=== PATIENT | male | born 1945 | race Caucasian/White ===

== ENCOUNTER 2017-07-16 15:40 | Observation (INO) ==
[2017-07-16] MEDS ORDERED: 0.9 % Sodium Chloride 1,000 ML IVC ONE ×2 (16:12→18:11)
--- NOTE | 2017-07-16 16:12 | Emergency Department Note ---
Disposition Clinical Impression: Lactic acidosis, D-dimer, elevated Dyspnea Qualifiers: Dyspnea type: unspecified Qualified Code(s): R06.00 - Dyspnea, unspecified Disposition: Admitted As Inpatient Condition: Fair Time of Disposition: 19:35 SOB HPI - General Chief Complaint: ED Shortness of Breath/Dyspnea Stated Complaint: Time Seen by Provider: 07/16/17 16:12 Source: patient Limitations: no limitations Nursing Notes Reviewed: Yes Vital Signs Reviewed: Yes - History of Present Illness 72-year-old male history of smoking and hypertension presents with shortness of breath acutely. Patient states that he had shortness of breath approximately one hour prior to ED arrival. He was standing at the time. Surgeon severe shortness of breath and then drove his brought him in for evaluation ED. Patient denies any chest pain or abdominal pain. He does have a recent history of laminectomy and subsequent C. difficile infection postoperatively he was just discharged from [facility] postoperatively a few weeks ago. Patient has a history of a left heart catheter although this was several years ago he has no history of stents, no history of blood clots recent travel or hemoptysis. He does have prolonged recumbency during his stay in the nursing facility Pt Subjective Complaint: shortness of breath - Related Data Home Medications Medication Instructions Recorded Confirmed Gabapentin [Neurontin] 100 mg PO TID 06/20/17 07/16/17 Loratadine [Allergy Relief] 10 mg PO DAILY 06/20/17 07/16/17 Losartan Potassium [Cozaar] 50 mg PO DAILY 06/20/17 07/16/17 Tamsulosin [Flomax] 0.8 mg PO HS 06/22/17 07/16/17 Allergies Allergy/AdvReac Type Severity Reaction Status Date / Time No Known Allergies Allergy Verified 06/22/17 20:44 All systems ED: reviewed and negative except as stated. Review of Systems: As Per HPI Constitutional: Denies: fever, chills Eyes: Denies: eye pain ENT ED: Denies: ear pain Cardiovascular: Reports: as per HPI, dyspnea on exertion. Denies: chest pain, palpitations Respiratory: Reports: as per HPI, dyspnea Gastrointestinal: Denies: abdominal pain, nausea, hematemesis, hematochezia Genitourinary: Denies: urgency, hematuria Musculoskeletal: Denies: back pain Neurological: Denies: headache, weakness Psychiatric: Denies: anxiety Past Medical History - Past Medical History Attestation: Yes The following information was validated with the patient. Source: patient Medical history: Reports: atrial fibrillation, hypertension Surgical history: Reports: other Psychiatric history: Reports: anxiety - Social History Smoking Status: Former smoker Smokeless Tobacco Status: No Alcohol use: Reports: none Drug use: Reports: none Physical Exam Constitutional: NAD, elderly male appears moderately uncomfortable vital signs reviewed and wnl Eyes: PERRLA, sclera anicteric ENT & Mouth: MM dry Neck: normal inspection, neck is supple Resp: CTA bilaterally, no resp distress CV: RRR, no m/g/r no evidence of pedal edema bilaterally GI: normal inspection, soft, no guarding or rigidity Neuro: A&O3, CNII-XII grossly intact, CLAY Skin: on limited exam, poor skin turgor - General Limitations: no limitations General appearance: alert, in no apparent distress Course Course Narrative: 72-year-old male with shortness of breath, given recent recumbency we will get a d-dimer, this could be atypical presentation of ACS however there is no evidence of ST segment elevations or depressions aspirin has been workup is ordered if d-dimer elevated we will get a CTA chest. - Reevaluation(s) Reevaluation #1: CTA was negative for PE, the patient was given aspirin and 2 L of fluid for a lactic acidosis of 3.5 that improved to 3.0 however he has no source of infection, he does not meet any other Sirs criteria besides tachycardia his white count is normal, he is in no acute distress at this time, but given his age and comorbidities would like to bring in for chest pain rule out Time: 19:34 Vital Signs Temperature 97.6 F 07/16/17 15:47 Pulse Rate 103 07/16/17 15:47 Respiratory Rate 18 07/16/17 15:47 Blood Pressure 120/60 07/16/17 15:47 O2 Sat by Pulse Oximetry 98 07/16/17 15:47 Temperature 98.1 F 07/16/17 19:53 Pulse Rate 76 07/16/17 18:38 Respiratory Rate 16 07/16/17 19:53 Blood Pressure 147/84 07/16/17 19:53 O2 Sat by Pulse Oximetry 98 07/16/17 18:38 Oxygen Delivery Oxygen Delivery Room Air Shortness of Breath/Dyspnea - MDM Narrative Medical decision making narrative: Admitted to [facility] for CP rule out Lactic acidosis. - Differential Diagnosis Likely: pulmonary embolism - Medical Records Medical records reviewed: Yes I reviewed the patient's medical records. - Lab Data Lab results reviewed: Yes I reviewed the patient's lab results. Result diagrams: 07/16/17 16:10 07/16/17 16:10 Lab Results 07/16/17 07/16/17 07/16/17 Range/Units 16:10 16:10 16:10 WBC 5.8 (4.3-11.1) K/mcL RBC 4.44 (4.19-5.50) M/mcL Hgb 13.1 (12.9-16.9) g/dL Hct 38.6 (37.5-50.1) % MCV 86.9 (83.0-100.0) fL MCH 29.5 (28.0-33.3) pg MCHC 33.9 (31.6-35.5) g/dL RDW 12.5 (11.5-14.5) % Plt Count 275 (140-400) K/mcL MPV 9.4 (9.4-12.4) fL Immature Gran % 0.2 (0-4) % Seg Neutrophils % 58.5 % Lymphocytes % 34.1 % Monocytes % 6.1 % Eosinophils % 0.9 % Basophils % 0.2 % Neutrophils # 3.4 (1.6-8.9) K/mcL Lymphocytes # 2.0 (0.6-4.6) K/mcL Monocytes # 0.4 (0.0-1.3) K/mcL Eosinophils # 0.1 (0.0-0.6) K/mcL Basophils # 0.0 (0.0-0.2) K/mcL PT (9.4-12.1) Seconds INR APTT (26.0-36.0) Seconds D-Dimer (0-500) ng/mLFEU Sodium 138 (136-145) mEq/L Potassium 4.1 (3.5-4.5) mEq/L Chloride 109 (98-109) mEq/L Carbon Dioxide 19 (19-29) mEq/L BUN 20 (8-26) mg/dL Creatinine 1.03 (0.72-1.25) mg/dL Est GFR ( Amer) > 60 (> 60) Est GFR (Non-Af Amer) > 60 (> 60) BUN/Creatinine Ratio 19 (6-26) Glucose 203 H (70-99) mg/dL Calculated Osmolality 294 (280-300) Lactic Acid 3.5 H (0.5-2.2) mmol/L Calcium 9.3 (8.6-10.8) mg/dL Troponin I (0-0.03) ng/mL B-Natriuretic Peptide (0-100) pg/mL Urine Color (Yellow) Urine Clarity (Clear) Urine pH (5.0-8.0) pH Units Ur Specific [place] (1.010-1.025) Urine Protein (Neg-Trace) mg/dL Urine Glucose (UA) (Normal) mg/dL Urine Ketones (Negative) mg/dL Urine Blood (Negative) Urine Nitrite (Negative) Urine Bilirubin (Negative) Urine Urobilinogen (Normal) mg/dL Ur Leukocyte Esterase (Negative) Urine Microscopic RBC (0-3) per hpf Urine Microscopic WBC (0-3) per hpf Ur Squamous Epith Cells (None-Few) per lpf Amorphous Sediment (Few) Urine Bacteria (None-Few) per hpf Hyaline Casts (None-Few) per lpf Urine Mucus (Few) 07/16/17 07/16/17 07/16/17 Range/Units 16:10 16:10 16:10 WBC (4.3-11.1) K/mcL RBC (4.19-5.50) M/mcL Hgb (12.9-16.9) g/dL Hct (37.5-50.1) % MCV (83.0-100.0) fL MCH (28.0-33.3) pg MCHC (31.6-35.5) g/dL RDW (11.5-14.5) % Plt Count (140-400) K/mcL MPV (9.4-12.4) fL Immature Gran % (0-4) % Seg Neutrophils % % Lymphocytes % % Monocytes % % Eosinophils % % Basophils % % Neutrophils # (1.6-8.9) K/mcL Lymphocytes # (0.6-4.6) K/mcL Monocytes # (0.0-1.3) K/mcL Eosinophils # (0.0-0.6) K/mcL Basophils # (0.0-0.2) K/mcL PT 12.1 (9.4-12.1) Seconds INR 1.1 APTT 31.4 (26.0-36.0) Seconds D-Dimer 5102 H (0-500) ng/mLFEU Sodium (136-145) mEq/L Potassium (3.5-4.5) mEq/L Chloride (98-109) mEq/L Carbon Dioxide (19-29) mEq/L BUN (8-26) mg/dL Creatinine (0.72-1.25) mg/dL Est GFR ( Amer) (> 60) Est GFR (Non-Af Amer) (> 60) BUN/Creatinine Ratio (6-26) Glucose (70-99) mg/dL Calculated Osmolality (280-300) Lactic Acid (0.5-2.2) mmol/L Calcium (8.6-10.8) mg/dL Troponin I 0.00 (0-0.03) ng/mL B-Natriuretic Peptide < 10 (0-100) pg/mL Urine Color (Yellow) Urine Clarity (Clear) Urine pH (5.0-8.0) pH Units Ur Specific [place] (1.010-1.025) Urine Protein (Neg-Trace) mg/dL Urine Glucose (UA) (Normal) mg/dL Urine Ketones (Negative) mg/dL Urine Blood (Negative) Urine Nitrite (Negative) Urine Bilirubin (Negative) Urine Urobilinogen (Normal) mg/dL Ur Leukocyte Esterase (Negative) Urine Microscopic RBC (0-3) per hpf Urine Microscopic WBC (0-3) per hpf Ur Squamous Epith Cells (None-Few) per lpf Amorphous Sediment (Few) Urine Bacteria (None-Few) per hpf Hyaline Casts (None-Few) per lpf Urine Mucus (Few) 07/16/17 07/16/17 Range/Units 16:44 17:58 WBC (4.3-11.1) K/mcL RBC (4.19-5.50) M/mcL Hgb (12.9-16.9) g/dL Hct (37.5-50.1) % MCV (83.0-100.0) fL MCH (28.0-33.3) pg MCHC (31.6-35.5) g/dL RDW (11.5-14.5) % Plt Count (140-400) K/mcL MPV (9.4-12.4) fL Immature Gran % (0-4) % Seg Neutrophils % % Lymphocytes % % Monocytes % % Eosinophils % % Basophils % % Neutrophils # (1.6-8.9) K/mcL Lymphocytes # (0.6-4.6) K/mcL Monocytes # (0.0-1.3) K/mcL Eosinophils # (0.0-0.6) K/mcL Basophils # (0.0-0.2) K/mcL PT (9.4-12.1) Seconds INR APTT (26.0-36.0) Seconds D-Dimer (0-500) ng/mLFEU Sodium (136-145) mEq/L Potassium (3.5-4.5) mEq/L Chloride (98-109) mEq/L Carbon Dioxide (19-29) mEq/L BUN (8-26) mg/dL Creatinine (0.72-1.25) mg/dL Est GFR ( Amer) (> 60) Est GFR (Non-Af Amer) (> 60) BUN/Creatinine Ratio (6-26) Glucose (70-99) mg/dL Calculated Osmolality (280-300) Lactic Acid 3.0 H (0.5-2.2) mmol/L Calcium (8.6-10.8) mg/dL Troponin I (0-0.03) ng/mL B-Natriuretic Peptide (0-100) pg/mL Urine Color Yellow (Yellow) Urine Clarity Cloudy A (Clear) Urine pH 7.5 (5.0-8.0) pH Units Ur Specific [place] > 1.030 H (1.010-1.025) Urine Protein Negative (Neg-Trace) mg/dL Urine Glucose (UA) Normal (Normal) mg/dL Urine Ketones Negative (Negative) mg/dL Urine Blood Negative (Negative) Urine Nitrite Negative (Negative) Urine Bilirubin Negative (Negative) Urine Urobilinogen Normal (Normal) mg/dL Ur Leukocyte Esterase Small H (Negative) Urine Microscopic RBC 0-3 (0-3) per hpf Urine Microscopic WBC 5-15 H (0-3) per hpf Ur Squamous Epith Cells Moderate H (None-Few) per lpf Amorphous Sediment Few (Few) Urine Bacteria None Seen (None-Few) per hpf Hyaline Casts None Seen (None-Few) per lpf Urine Mucus Moderate H (Few) - Radiology Data Radiology results reviewed: Yes I reviewed the patient's radiology results. Chest X-Ray 07/16/17 16:12 IMPRESSION: No acute cardiopulmonary process. D/ / 07/16/2017 17:09:40 Can Razo MD / jc Interpreting Provider: Can Razo MD Chest CTA 07/16/17 16:51 IMPRESSION: No evidence of pulmonary embolism or acute pulmonary abnormality. D/ / Toni Michelle MD / Toni Michelle MD Interpreting Provider: Toni Michelle MD - EKG Data EKG attestation: Yes I reviewed and interpreted this EKG. EKG shows normal: Reports: sinus rhythm (100 bpm UT 167 QRS 94 QTc 382 artifact present appears to be sinus tachycardia left axis no evidence of ST segment elevations or depressions) Interpretation: Reports: no acute changes, normal EKG - Core Measures AMI Core Measures Followed: Yes Attestation Statement - Attestation Attestation: I examined this patient and my medical decision-making was reviewed with the Resident Physician, Dr. Segura. I agree with the documented findings, disposition and treatment plan as described except to the extent set forth below. Patient is a 72-year-old white male who presents emergency Department today with complaints of acute onset of shortness of breath a few hours prior to arrival to the ED. Patient states that he is currently in physical therapy for recent lumbar laminectomy that he underwent at this hospital, and following physical therapy he was resting comfortably and had a sudden onset of shortness of breath. Patient also complained of some preceding lightheadedness and was concerned that he may pass out so he did sit down at the onset of these symptoms. Patient arrives visibly short of breath with increased work of breathing and tachypnea but no hypoxia. Patient denies any lower extremity pain or cramping, no chest pain or pressure or heaviness. No diaphoresis, no abdominal pain or flank pain, no nausea vomiting. Patient has had an unfortunate postoperative course since his surgery. Patient developed postoperative C. difficile colitis as well as urinary retention secondary to an enlarged prostate and had a Hooks catheter placed. Patient states he does have the catheter removed 2 days ago and was prescribed antibiotics but had difficulty tolerating them due to upset his stomach and cause diarrhea. Patient denies any difficulty urinating or dysuria since catheter removal. Patient denies any fevers or chills and states that when he arrived at physical therapy this morning he was feeling quite well. Patient arrives with visible increased work of breathing with mild respiratory distress, tachycardic. Patient with a stable blood pressure and no hypoxia. EKG shows sinus tachycardia with no acute ST or T-wave changes. Patient was continued on teletypesetter monitor and continuous pulse ox IV saline was established labs were drawn and sent and patient had portable chest x-ray obtained. Chest x-ray was unremarkable. Out of concern for possible PE with sudden onset and respiratory distress without any clear etiology patient was sent for scanning. CT is negative for any pulmonary embolus and no other pulmonary abnormality was seen. She did have an elevated lactate which has been improving with IV fluid resuscitation. At no time has he been hypotensive. We have no clear etiology for infection. Patient's troponin was also negative. At this time we do not have a clear answer for the patient's acute onset of dyspnea and will bring him in for further medical evaluation. Discussed the results with patient and who agree with admission and also with the hospitalist who accepted the patient for admission. Patient's vital signs are improved at this time and he is resting more comfortably with no sign of respiratory distress or hypoxia at this time.
--- NOTE | 2017-07-16 16:12 | Emergency Department Note ---
START Narrative - START START: AFTER READING TRIAGE NOTE, NOTED DISCREPANCY IN DOCUMENTATION, AND NOTING THAT I WAS NOT NOTIFIED OF ABNORMAL VS, AND CONCERN FOR SEPSIS NOTED IN TRIAGE NOTE.
[2017-07-16 16:20] LABS: Basophils % 0.2 %; Eosinophils # 0.1 K/mcL (0.0-0.6); Eosinophils % 0.9 %; Hematocrit 38.6 % (37.5-50.1); Hemoglobin 13.1 g/dL (12.9-16.9); Immature Granulocytes % 0.2 % (0-4); Lymphocytes % 34.1 %; Mean Corpuscular HGB Conc 33.9 g/dL (31.6-35.5); Mean Corpuscular Hemoglobin 29.5 pg (28.0-33.3); Mean Corpuscular Volume 86.9 fL (83.0-100.0); Mean Platelet Volume 9.4 fL (9.4-12.4); Monocytes # 0.4 K/mcL (0.0-1.3); Monocytes % 6.1 %; Neutrophils # 3.4 K/mcL (1.6-8.9); Platelet Count 275 K/mcL (140-400); Red Blood Count 4.44 M/mcL (4.19-5.50); Red Cell Distribution Width 12.5 % (11.5-14.5); Segmented Neutrophils % 58.5 %
[2017-07-16 16:25] LABS: INR 1.1; Prothrombin Time 12.1 Seconds (9.4-12.1)
[2017-07-16 16:28] LABS: Activated Partial Thrombo Time 31.4 Seconds (26.0-36.0)
[2017-07-16 16:33] LABS: BUN/Creatinine Ratio 19 (6-26); Blood Urea Nitrogen 20 mg/dL (8-26); Calcium 9.3 mg/dL (8.6-10.8); Carbon Dioxide 19 mEq/L (19-29); Chloride 109 mEq/L (98-109); Glucose 203 mg/dL (70-99); Osmolality,Calculated 294 (280-300); Potassium 4.1 mEq/L (3.5-4.5); Sodium 138 mEq/L (136-145); eGFR For African Americans > 60 (> 60); eGFR For Non-African Americans > 60 (> 60)
[2017-07-16 18:07] LABS: Bilirubin,Urine Negative (Negative); Blood,Urine Negative (Negative); Clarity,Urine Cloudy (Clear); Color,Urine Yellow (Yellow); Glucose,Urine (UA) Normal (Normal); Ketones,Urine Negative (Negative); Leukocyte Esterase,Urine Small (Negative); Nitrite,Urine Negative (Negative); PH,Urine 7.5 pH Units (5.0-8.0); Protein,Urine Negative (Neg-Trace); Specific Gravity,Urine > 1.030 (1.010-1.025); Urobilinogen,Urine Normal (Normal)
[2017-07-16 18:09] LABS: Bacteria,Urine None Seen per hpf (None-Few); Hyaline Casts,Urine None Seen per lpf (None-Few); RBC,Urine 0-3 per hpf (0-3); Squamous Epithelial Cell,Urine Moderate per lpf (None-Few)
[2017-07-16] MEDS ORDERED: Aspirin 325 MG TABLET PO ONE (18:14)
[2017-07-16 18:26] LABS: Amorphous Sediment,Urine Few (Few); Mucus,Urine Moderate (Few)
[2017-07-16] MEDS ORDERED: *HR* Morphine 2 MG/ML SYRINGE IVP PRN (20:29)
[2017-07-16] MEDS ORDERED: Acetaminophen 325 MG TABLET PO PRN (20:29)
[2017-07-16] MEDS ORDERED: Ondansetron 4 MG/2 ML VIAL IVP PRN (20:29)
[2017-07-16] MEDS ORDERED: Naloxone 0.4 MG/ML INJ IVP PRN (20:29)
[2017-07-16] MEDS ORDERED: *HR* HYDROcodone/Acet 5/325 mg TABLET PO PRN (20:29)
[2017-07-16] MEDS: Gabapentin 100 MG CAPSULE PO SCH (21:53)
[2017-07-16] MEDS: Doxycycline 100 MG CAPSULE PO SCH (21:54)
--- NOTE | 2017-07-16 22:20 | Internal Med History&Physical ---
Date of Encounter: 07/16/17 Time of Encounter: 22:17 Assessment and Plan (1) Dyspnea Current visit: Yes Status: Acute Patient reported acute onset shortness of breath. BNP was less than 10. Chest x-ray is unremarkable. EKG with sinus tachycardia and no ST segment changes. D-dimer was elevated, however chest CTA reflect ruled out pulmonary embolism. Suspected angina equivalent. Cycle troponins Echocardiogram done in May 2017 :LVEF 60-65%,Normal left ventricular size and systolic function,.There is evidence of mild diastolic dysfunction of the left ventricle,Normal right ventricular size and function.No significant valvular dysfunction.No pulmonary hypertension. Qualifiers: Dyspnea type: shortness of breath Qualified Code(s): R06.02 - Shortness of breath; R06.00 - Dyspnea, unspecified; R06.01 - Orthopnea (2) Lactic acidosis Current visit: Yes Status: Acute Lactic acidosis of unknown etiology. Patient is not septic. He is improving with IV fluid hydration. Repeat lactate (3) Essential hypertension Current visit: Yes Status: Chronic Controlled on current medications, continue the same. (4) BPH (benign prostatic hyperplasia) Current visit: Yes Status: Chronic Continue home dose of tamsulosin. Patient denies urinary symptoms. Qualifiers: Lower urinary tract symptom presence: unspecified whether lower urinary tract symptoms present Qualified Code(s): N40.0 - Benign prostatic hyperplasia without lower urinary tract symptoms (5) UTI (urinary tract infection) Current visit: Yes Status: Acute Patient reports having an abnormal urine analysis, that is obvious from today's urine analysis. He was started on Bactrim by his primary care physician 3 days ago. However patient reports taking only 2 doses of Bactrim and discontinued because of symptoms of psychosis Start patient on doxycycline Send urine culture. Qualifiers: Urinary tract infection type: acute cystitis Hematuria presence: without hematuria Qualified Code(s): N30.00 - Acute cystitis without hematuria (6) Physical deconditioning Current visit: Yes Status: Chronic PTOT evaluation (7) Atrial fibrillation Current visit: Yes Status: Chronic Patient with paroxysmal atrial fibrillation during his last admission. Patient opted for anticoagulation with aspirin only. His CHADS score is 1 for hypertension. His heart rate is controlled. Continue aspirin only Qualifiers: Atrial fibrillation type: paroxysmal Qualified Code(s): I48.0 - Paroxysmal atrial fibrillation Internal Medicine - H&P: HPI Chief complaint: Shortness of breath Admitted From: Home Plans for Post Hospital Care: Home History of present illness: Mr. Gallegos is a 72 year old male with past medical history of BPH, hypertension, neuropathy. Patient reports being recently discharged from this facility after spine surgery which was complicated by C. difficile colitis and arrhythmia. He reports being in his usual state of health until this afternoon when he developed acute onset shortness of breath which lasted about an hour. He reports associated dizziness and lightheadedness during this process. He denies cough, sore throat, myalgias. He does not have fever or chills. He did not have any chest pain, he did not have nausea or vomiting. He denies abdominal pain. Patient reports having urinary retention after his spine surgery, with indwelling Hooks catheter for 3 weeks. His Hooks catheter was recently removed within the past week. He denies dysuria, he denies urgency, he denies change in urine color. He reports being deconditioned, and is currently undergoing physical therapy and occupational therapy as outpatient. Other review of systems is not contributory. His workup in the ER revealed an unremarkable CBC with chemistry. However his lactate was 3.0. D-dimer was elevated but and 5000. Chest x-ray was unremarkable. Troponin was negative. EKG showed sinus tachycardia without any ST segment changes. His first troponin was negative. Past Med Surg Social Fam HX - Past Medical History Medical history: atrial fibrillation, hypertension Psychiatric history: anxiety - Past Surgical History Surgical History: other - Social History Smoking Status: Former smoker Smokeless Tobacco Status: No Alcohol use: none Drug use: none - Family History Mother Hx Family Endocrine Disorder: Yes (DM) Internal Medicine - H&P: Meds Gabapentin [Neurontin] 100 mg PO TID 06/20/17 [History] Loratadine [Allergy Relief] 10 mg PO DAILY 06/20/17 [History] Losartan Potassium [Cozaar] 50 mg PO DAILY 06/20/17 [History] Tamsulosin [Flomax] 0.8 mg PO HS 06/22/17 [History] 3 Allergy/AdvReac Type Severity Reaction Status Date / Time No Known Allergies Allergy Verified 06/22/17 20:44 All Systems PM: A 10-system review of systems was performed and is negative for pertinent findings except as documented above in the HPI. - Constitutional Constitutional: as per HPI - EENT Eyes: as per HPI Ears: as per HPI Nose, mouth and throat: as per HPI - Cardiovascular Cardiovascular ROS IM: as per HPI - Respiratory Respiratory: as per HPI - Gastrointestinal Gastrointestinal: no abdominal pain, no diarrhea, no hematemesis, no hematochezia, no melena, no nausea, no vomiting - Musculoskeletal Musculoskeletal ROS IM: no numbness, no tingling - Integumentary Integumentary IM: no rash, no unusual bruising - Neurological Neurological ROS: no confusion, no convulsions, no focal weakness, no numbness, no tingling, no tremor(s) - Hematologic/Lymphatic Hematologic/Lymphatic: no easy bruising - Constitutional Vitals: Temp Pulse Resp BP Pulse Ox 98.2 F 75 16 143/60 94 07/16/17 20:00 07/16/17 20:00 07/16/17 20:00 07/16/17 20:00 07/16/17 20:00 General appearance: Present: A&O X 3, pleasant, no acute distress - Head Head exam: Present: atraumatic, normocephalic - Eye Eye exam: Present: PERRL, conjuntiva pink, sclera anicteric Pupils: Present: PERRL - Neck Neck exam general surgery: Present: supple, trachea midline. Absent: lymphadenopathy - Respiratory Respiratory exam: Present: CTAB. Absent: accessory muscle use, rales, rhonchi, wheezes - Cardiovascular Cardiovascular exam: Present: RRR, +S1, +S2. Absent: diastolic murmur, gallop, rubs, systolic murmur - GI/Abdominal GI/Abdominal exam: Present: normal bowel sounds, soft, no peritoneal signs. Absent: distended, tenderness - Extremities Exam Extremities exam: Present: warm, radial pulses palpable and symmetrical. Absent : calf tenderness, cyanotic, pedal edema - Neurological Exam Neurological exam: Present: alert, CN II-XII intact, oriented X3, no focal deficits. Absent: pronater drift, facial droop, speech deficit - Skin Skin exam: Present: dry, intact Internal Med - H&P Results - Labs CBC & Chem 7: 07/16/17 16:10 07/16/17 16:10 Labs: His workup in the ER revealed an unremarkable CBC with chemistry. However his lactate was 3.0. D-dimer was elevated but and 5000. Chest x-ray was unremarkable. Troponin was negative. EKG showed sinus tachycardia without any ST segment changes. His first troponin was negative.
[2017-07-17 07:00] LABS: Basophils % 0.5 %; Eosinophils # 0.1 K/mcL (0.0-0.6); Eosinophils % 2.5 %; Hematocrit 34.6 % (37.5-50.1); Immature Granulocytes % 0.2 % (0-4); Lymphocytes # 1.6 K/mcL (0.6-4.6); Lymphocytes % 34.9 %; Mean Corpuscular HGB Conc 32.9 g/dL (31.6-35.5); Mean Corpuscular Hemoglobin 29.1 pg (28.0-33.3); Mean Corpuscular Volume 88.3 fL (83.0-100.0); Mean Platelet Volume 9.8 fL (9.4-12.4); Monocytes # 0.4 K/mcL (0.0-1.3); Neutrophils # 2.4 K/mcL (1.6-8.9); Platelet Count 244 K/mcL (140-400); Red Blood Count 3.92 M/mcL (4.19-5.50); Red Cell Distribution Width 12.5 % (11.5-14.5); Segmented Neutrophils % 52.9 %
[2017-07-17 07:07] LABS: Hemoglobin 11.4 g/dL (12.9-16.9)
[2017-07-17 07:08] LABS: BUN/Creatinine Ratio 17 (6-26); Blood Urea Nitrogen 13 mg/dL (8-26); Calcium 8.5 mg/dL (8.6-10.8); Carbon Dioxide 20 mEq/L (19-29); Chloride 112 mEq/L (98-109); Glucose 99 mg/dL (70-99); Osmolality,Calculated 290 (280-300); Sodium 140 mEq/L (136-145); eGFR For African Americans > 60 (> 60); eGFR For Non-African Americans > 60 (> 60)
[2017-07-17 07:10] LABS: Chol/HDL Ratio 5.7 (0-4.9)
[2017-07-17] MEDS ORDERED: Regadenoson 0.4 MG/5 ML SYRINGE IVP ONE ×2 (07:41→07:44)
[2017-07-17] MEDS: Loratadine 10 MG TABLET PO SCH (09:00)
[2017-07-17] MEDS: Aspirin Enteric Coated 81 MG Tablet PO SCH (09:00)
[2017-07-17] MEDS: Gabapentin 100 MG CAPSULE PO SCH ×3 (09:01→21:48)
[2017-07-17] MEDS: Doxycycline 100 MG CAPSULE PO SCH ×2 (09:01→21:48)
--- NOTE | 2017-07-17 11:08 | Nuclear Medicine Stress Report ---
Regadenoson Nuclear Stress Name: Can Gallegos Date of Study: 07/17/2017 Date: 1945 Ht: 74.0 in Medical Record#: [id number] Age: 72 Wt: 220.0 lb Gender: Male Order #: [id number] Location: [facility] Room: [facility] Supervising Provider: Rosendo Ceja CNP Reading Physician: Sari Hilton DO Ordering Physician: Mable Cadena CNP Stress Technologist: Alhaji Bolden CRT Ruling Machine Set Up Operator: Raymond Boucher Indications: Chest Pain Impression: There is a mild intensity perfusion defect observed mainly during stress in the basal and mid anterior wall, but also to some trivial extent during rest. Patient's left arm was down during both rest and stress images which can obscure image quality. However, given findings, cannot exclude ischemia in the basal and mid anterior wall. Recommend clinical correlation. Pharmacologic ECG was negative for ischemia at the level of heart rate achieved. Gated EF = >70%. History: Hypertension Hypercholesteremia Stress Test Summary: Stress Test Type: Pharmacologic Regadenoson 0.4mg/5ml given IV Baseline Information: Initial Heart Rate: 82 Blood Pressure: 140/64 Stress Information: Test Terminated Due to (primary): As per protocol Maximum Blood Pressure: 114/60 Maximum Heart Rate: 104 Percent Maximum Heart Rate Achieved: 71 Double Product: [id number] METS Reached: 1 Symptoms: Dizziness Nuclear Summary: SPECT myocardial perfusion imaging using [id number] Sestamibi given intravenously was performed at rest and following cardiac stress testing. The resting images were obtained following initial dose of 11.1 mCi. Following stress an additional dose of 35.6 mCi was given at peak exercise or 30 seconds post regadenoson infusion. Medication Given: Time Medication Dose Units Route Findings: Stress Note * Resting ECG demonstrated normal sinus rhythm with old septal infarct. * Pharmacologic stress ECG is negative for ischemia at level of heart rate achieved. * No arrhythmias were noted during stress. * Patient had no chest pain during stress. Hemodynamic responses * Normal hemodynamic responses to pharmacologic stress. Study Quality * Study quality performance is average. Image quality is limited - patient with left arm down during rest and stress images. Gated EF > 70% * Gated EF > 70%. Left Ventricle * The left ventricle is not dilated. TID * No evidence of transient ischemic dilatation. Lung Uptake * There is no evidence of increase lung uptake. NORMALS * Normal wall motion. PERFUSION * PERFUSION * There is a mild intensity perfusion defect observed mainly during stress, but also to some extent during rest. Patient's left arm was down during both rest and stress images which can obscure image quality. However, given findings, cannot exclude ischemia in the basal and mid anterior wall. * Other segments demonstrate normal rest and stress perfusion uptake. Updated by Sari Hilton on 07/17/2017 10:58:09 AM electronically signed on 07/17/2017 11:03:08 AM with status of Final
--- NOTE | 2017-07-17 18:33 | Internal Med Progress Note ---
Date of Encounter: 07/17/17 Time of Encounter: 09:35 - Assessment and plan (1) DVT prophylaxis Current Visit: No Status: Acute Assessment and plan: Patient is ambulatory. (2) S/P laminectomy Current Visit: No Status: Acute (3) Lactic acidosis Current Visit: Yes Status: Resolved Assessment and plan: Lactic acid has returned to within normal limits. Resolved with fluid hydration. (4) Dyspnea Current Visit: Yes Status: Acute Assessment and plan: Patient denies dyspnea since admission. States he began having shortness of breath and chest pressure while at the car wash after physical therapy. Patient is physically deconditioned due to surgery. He is getting physical therapy outpatient. Dyspnea could be multifactorial, including anxiety, physical deconditioning, and general fatigue. All testing has been negative to this point. We will continue to monitor. Qualifiers: Dyspnea type: shortness of breath Qualified Code(s): R06.02 - Shortness of breath; R06.00 - Dyspnea, unspecified; R06.01 - Orthopnea (5) D-dimer, elevated Current Visit: Yes Status: Acute Assessment and plan: CTA negative for PE. (6) UTI (urinary tract infection) Current Visit: Yes Status: Acute Assessment and plan: Urine cloudy, small amount of leukocyte esterase, 5-15 white cells and no bacteria. Patient was being treated with by his primary care provider. He believes that it was causing him anxiety and states that he felt like he needed to run everywhere. Antibiotic has been changed to doxycycline. Culture is still pending. Qualifiers: Urinary tract infection type: acute cystitis Hematuria presence: without hematuria Qualified Code(s): N30.00 - Acute cystitis without hematuria (7) Physical deconditioning Current Visit: Yes Status: Chronic Assessment and plan: Patient with recent laminectomy in May. He is steadily improving, he has been getting outpatient physical therapy. We will continue physical therapy inpatient. - Time Spent With Patient less than 15 minutes - Subjective Interval history: Patient was seen and assessed at 09 30 5 AM. Patient was standing at the site of his bed, states that he has greatly improved. Patient denies any chest pain or dyspnea. Patient reports that he feels Bactrim has been giving him anxiety. He does have a history of depression. He is taking Bactrim for urinary tract infection which has been switched to doxycycline. I believe patient episode prior to arrival with dyspnea was related to anxiety. Patient has had surgery and multiple hospital admissions since May. We will continue to monitor the patient. Most likely will discharge in the morning if his labs remained stable. - Constitutional Vitals: Temp Pulse Resp BP Pulse Ox 98.1 F 67 18 133/71 96 07/17/17 15:30 07/17/17 15:30 07/17/17 15:30 07/17/17 15:30 07/17/17 15:30 General appearance: Present: A&O X 3, pleasant, no acute distress, answers questions appropriately - Head Head exam: Present: atraumatic, normal inspection, normocephalic - Eye Eye exam: Present: normal appearance, conjuntiva pink, sclera anicteric - Neck Neck exam general surgery: Present: supple, trachea midline. Absent: lymphadenopathy - Respiratory Respiratory exam: Present: CTAB. Absent: accessory muscle use, rales, rhonchi, wheezes - Cardiovascular Cardiovascular exam: Present: RRR, +S1, +S2. Absent: diastolic murmur, gallop, rubs, systolic murmur - GI/Abdominal GI/Abdominal exam: Present: normal bowel sounds, soft, no peritoneal signs. Absent: distended, hepatomegaly, tenderness - Extremities Exam Extremities exam: Present: normal capillary refill, normal inspection, warm, radial pulses palpable and symmetrical. Absent: calf tenderness, cyanotic, pedal edema, tenderness - Neurological Exam Neurological exam: Present: alert, oriented X3, no focal deficits. Absent: altered, facial droop, speech deficit - Skin Skin exam: Present: dry, intact, normal color, warm. Absent: rash Internal Medicine: Result - Labs CBC & Chem 7: 07/17/17 06:16 07/17/17 06:16 Labs: Short CBC 07/17/17 Range/Units 06:16 WBC 4.4 (4.3-11.1) K/mcL Hgb 11.4 L D (12.9-16.9) g/dL Hct 34.6 L (37.5-50.1) % Plt Count 244 (140-400) K/mcL Neutrophils # 2.4 (1.6-8.9) K/mcL BMP 07/17/17 06:16 Sodium 140 Potassium 4.0 Chloride 112 H Carbon Dioxide 20 BUN 13 Creatinine 0.77 Glucose 99 Calcium 8.5 L Cardiac Enzymes 07/16/17 07/17/17 Range/Units 21:48 06:16 Troponin I 0.02 0.02 (0-0.03) ng/mL - ABG Interpretation ABG results: PT/INR, D-dimer PT 12.1 Seconds (9.4-12.1) 07/16/17 16:10 D-Dimer 5102 ng/mLFEU (0-500) H 07/16/17 16:10 Consult Discharge Plan - Plan Referrals: Brittany Looney MD [Primary Care Provider] -
--- NOTE | 2017-07-17 19:14 | Electrocardiograph Report ---
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
[2017-07-18 05:26] LABS: Basophils % 0.2 %; Eosinophils # 0.1 K/mcL (0.0-0.6); Eosinophils % 2.8 %; Hematocrit 35.2 % (37.5-50.1); Hemoglobin 11.8 g/dL (12.9-16.9); Immature Granulocytes % 0.2 % (0-4); Lymphocytes # 1.5 K/mcL (0.6-4.6); Lymphocytes % 31.8 %; Mean Corpuscular HGB Conc 33.5 g/dL (31.6-35.5); Mean Corpuscular Hemoglobin 29.9 pg (28.0-33.3); Mean Corpuscular Volume 89.1 fL (83.0-100.0); Mean Platelet Volume 9.8 fL (9.4-12.4); Monocytes # 0.4 K/mcL (0.0-1.3); Monocytes % 8.9 %; Neutrophils # 2.6 K/mcL (1.6-8.9); Platelet Count 239 K/mcL (140-400); Red Blood Count 3.95 M/mcL (4.19-5.50); Red Cell Distribution Width 12.6 % (11.5-14.5); Segmented Neutrophils % 56.1 %
[2017-07-18 05:38] LABS: BUN/Creatinine Ratio 13 (6-26); Blood Urea Nitrogen 10 mg/dL (8-26); Calcium 8.7 mg/dL (8.6-10.8); Carbon Dioxide 22 mEq/L (19-29); Chloride 111 mEq/L (98-109); Glucose 98 mg/dL (70-99); Osmolality,Calculated 289 (280-300); Sodium 140 mEq/L (136-145); eGFR For African Americans > 60 (> 60); eGFR For Non-African Americans > 60 (> 60)
[2017-07-18] MEDS: Aspirin Enteric Coated 81 MG Tablet PO SCH (08:00)
[2017-07-18] MEDS: Loratadine 10 MG TABLET PO SCH (08:00)
[2017-07-18] MEDS: Doxycycline 100 MG CAPSULE PO SCH (08:00)
[2017-07-18] MEDS: Gabapentin 100 MG CAPSULE PO SCH ×3 (08:01→20:06)
--- NOTE | 2017-07-18 15:09 | Cardiology Consult Note ---
<Reid Lee - Last Filed: 07/18/17 15:25> Date of Encounter: 07/18/17 Time of Encounter: 15:04 Assessment and Plan (1) Abnormal stress test Current Visit: Yes Status: Acute Presents with SOB and dizziness. Denies chest pain to me. Troponin negative. He is normotensive. Telemetry review showed NSR. Stress test ordered by primary team. Stress test showed a mild intensity perfusion defect observed mainly during stress in the basal and mid anterior wall, but also to some trivial extent during rest. Patient's left arm was down during both rest and stress images which can obscure image quality. However, given findings, cannot exclude ischemia in the basal and mid anterior wall. Recommend clinical correlation. Pharmacologic ECG was negative for ischemia at the level of heart rate achieved. Gated EF = > 70%. Stress test reviewed with patient and . LHC is recommended for further evaluation. R/B/A of LHC discussed. Patient declines LHC at this time and prefers only medical management. He does not wish to proceed with any invasive procedures. Dr. Blackmon to discuss further. Recommend asa, statin, and bb. Agressive risk factor modification. (2) Atrial fibrillation Current Visit: No Status: Resolved H/o post operative afib that resolved in after surgery when given esmolol. Telemetry review shows no evidence of afib. SR-ST with avg HR 80. Anticoagulation was not recommended d/t short duration.Continue beta-nga. Qualifiers: Atrial fibrillation type: unspecified Qualified Code(s): I48.91 - Unspecified atrial fibrillation Discussion w patient/family: The assessment and plan as outlined above was discussed with the patient and/or family members who expressed understanding and agreement. All questions were answered. Thank you for involving us in the care of your patient. Please call with any questions. History of Present Illness Consult date: 07/18/17 Requesting physician: Mable Cadena Consult reason: abnormal stress test Chief complaint: Chest pain History of present illness: Mr. Gallegos is a 72 year old male with a history of HTN, HLD, recent lumbar spine surgery with post-operative atrial fibrillation, recent MRSA of back wound who presents with the c/o dizziness and SOB while watching his car be washed at the car wash. He walked into the viewing area and sat down. He continued to feel unwell. He denies chest pain or palpitations. He presented to the ER. Initial evaluation showed that he was normotensive. EKG revealed ST HR [address] changes. Troponin negative. He reports decreased mobility due to lumbar spine surgery in May. He developed post-operative atrial fibrillation in the operating room. No recurrent problem since that time that he knows of. He did have an echocardiogram that showed normal LV function during that hospital stay. Cardiology consulted for abnormal stress test. Past Med Surg Social Fam HX - Past Medical History Medical history: atrial fibrillation, hypertension Psychiatric history: anxiety - Past Surgical History Surgical History: other - Social History Smoking Status: Former smoker Smokeless Tobacco Status: No Alcohol use: none Drug use: none - Family History Mother Hx Family Endocrine Disorder: Yes (DM) Medications and Allergies Gabapentin [Neurontin] 100 mg PO TID 06/20/17 [History] Loratadine [Allergy Relief] 10 mg PO DAILY 06/20/17 [History] Losartan Potassium [Cozaar] 50 mg PO DAILY 06/20/17 [History] Tamsulosin [Flomax] 0.8 mg PO HS 06/22/17 [History] 3 Allergy/AdvReac Type Severity Reaction Status Date / Time No Known Allergies Allergy Verified 06/22/17 20:44 All Systems Review: A 10-system review of systems was performed and is negative for pertinent findings except as documented above in the HPI. Physical Examination Vital Signs, Last 4 Hours Temp Pulse Resp BP Pulse Ox 07/18/17 14:08 97.8 F 82 16 124/70 96 07/18/17 11:32 97.8 F 74 16 133/70 95 General: Conversant, No Apparent Distress, Other (Frail elderly male) HEENT: Atraumatic, Normocephaly, Mucus Membranes Moist Neck: No JVD, Normal carotid pulses Cardiac: Reg Rate and Rhythm, Normal S1 and S2, No Murmur Lungs: Normal Breath Sounds, No Wheeze, Rales, Rhonchi Neuro: Alert and responsive, No focal deficits noted Abdomen: Soft, Non-Tender Skin: No rashes noted on visualized skin, Other (lumbar spine healed incision) Musculoskeletal: No Chest Wall Tenderness Extremities: No Clubbing, No Cyanosis, No Edema, Normal Pulses Results 07/18/17 04:56 07/18/17 04:56 Lab Results 07/18/17 07/18/17 04:56 04:56 WBC 4.6 Hgb 11.8 L Hct 35.2 L Plt Count 239 Sodium 140 Potassium 4.0 Chloride 111 H Carbon Dioxide 22 BUN 10 Creatinine 0.80 Glucose 98 Calcium 8.7 - Imaging and Cardiology Stress Test: report reviewed Echo: report reviewed - EKG Interpretation EKG results cardiology: personally reviewed Consult Discharge Plan - Plan Referrals: Brittany Looney MD [Primary Care Provider] - 08/01/17 1:00 pm <Joaquín Blackmon - Last Filed: 07/18/17 19:20> Date of Encounter: 07/18/17 Assessment and Plan Discussion w patient/family: The assessment and plan as outlined above was discussed with the patient and/or family members who expressed understanding and agreement. All questions were answered. Thank you for involving us in the care of your patient. Please call with any questions. History of Present Illness History of present illness: Mr. Gallegos is a 72 year old male All Systems Review: A 10-system review of systems was performed and is negative for pertinent findings except as documented above in the HPI. Results 07/18/17 04:56 07/18/17 04:56 Lab Results 07/18/17 07/18/17 04:56 04:56 WBC 4.6 Hgb 11.8 L Hct 35.2 L Plt Count 239 Sodium 140 Potassium 4.0 Chloride 111 H Carbon Dioxide 22 BUN 10 Creatinine 0.80 Glucose 98 Calcium 8.7 - Attending Attestation PT seen and examined independently, chart reviewed, essentially agree with findings as documented, my evaluation as follows: CC: Dizziness HPI: PT reports was watching car at [employer], developed dizziness, mild shortness of breath while standing. He walked into administrative assistant receptionist, sat down and shortness of breath resolved, but still felt dizzy. Symptoms persisted for another ten minutes, pt called squad, transported to ER. He reports symptoms had resolved at that point. He has not had any reoccurence of symptoms since admission. He notes he felt very similar to when he had A fib post op back surgery. He denies other similar episodes. Activity is limited by recent back surgery, but has been doing steps and ellipitcal at rehab without symptoms. PE: agree with findings as documented, add has mild pectus excavatum. IMP/Plan; 1. Dizziness: has resolved, have not idenified a direct etiology, although symptoms are suggestive of recurrent A fib with RVR, will add low dose coreg, decrease Losartin, monitor overnight, home in AM is asymptomatic, follow with 48 hour holter as outpatient. 2. Abnormal stress test: findings suggestive of reversible ischemia, long conversation with pt and , recommend [facility] to define anatomy, pt very concerned with recent complications of back surgery, does not want to run the risk of complications unless becomes more symptomatic. He is willing to follow up as outpatient, carry ntg and add low dose Coreg. Pt and understand and accept small but real risk of myocardial infarction, arrhythmia and with medical management only, and agree to be vigilent for any new symptoms. 3. Hypertension: well controlled on current meds, will decrease Losartin to 25 mg daily to avoid hypotension with addition of Coreg. 4. Paroxysmal A fib, maintaining NSR on tele, will follow as outpatient with prolonged monitoring. No indication for systemic anticoagulation at present.
--- NOTE | 2017-07-18 18:25 | Internal Med Progress Note ---
Date of Encounter: 07/18/17 Time of Encounter: 13:55 - Assessment and plan (1) S/P laminectomy Current Visit: No Status: Acute Assessment and plan: Patient had surgery in May. He is doing physical therapy outpatient and will continue to do so after discharge. (2) Lactic acidosis Current Visit: Yes Status: Resolved (3) Dyspnea Current Visit: Yes Status: Acute Assessment and plan: Patient denies dyspnea since admission. We will continue to monitor. Lungs are clear. Dyspnea was most likely due to chest pain that he had, patient had abnormal stress test today. Qualifiers: Dyspnea type: shortness of breath Qualified Code(s): R06.02 - Shortness of breath; R06.00 - Dyspnea, unspecified; R06.01 - Orthopnea (4) D-dimer, elevated Current Visit: Yes Status: Acute Assessment and plan: CTA negative for PE. (5) UTI (urinary tract infection) Current Visit: Yes Status: Acute Assessment and plan: Urine culture was negative. Will stop doxycycline. Qualifiers: Urinary tract infection type: acute cystitis Hematuria presence: without hematuria Qualified Code(s): N30.00 - Acute cystitis without hematuria (6) Physical deconditioning Current Visit: Yes Status: Chronic Assessment and plan: Patient with recent laminectomy in May. He is steadily improving, he has been getting outpatient physical therapy. We will continue physical therapy inpatient. (7) DVT prophylaxis Current Visit: No Status: Acute Assessment and plan: Patient is ambulatory. (8) Abnormal stress test Current Visit: Yes Status: Acute Assessment and plan: She had an abnormal stress test today. It showed mild intensity perfusion defect observed mainly during stress in the basal and mid anterior wall. Patient's arm was down during both resting and stress images which can obscure image quality. However, given findings, cannot exclude ischemia in the basal and mid anterior wall. Pharmacologic ECG was negative for ischemia at the level of the heart rate achieved. There is a gaited EF of greater than 70%. Cardiology was consulted. The patient was seen today in [facility] was recommended. Patient declines left heart catheter this time and prefers only medical management. Patient was to see Dr. Blackmon today. Patient is already on aspirin, and a statin. I have started a beta nga, metoprolol 12.5 mg by mouth twice a day. - Time Spent With Patient less than 15 minutes - Subjective Interval history: Patient was seen and assessed at 1355. is at bedside. Patient appears well and denies chest pain. I discussed the results of the stress test the fact that I had consulted cardiology. Patient did not appear to happy as they thought they were going home today. Patient is agreeable to staying for cardiology consult. We will most likely discharge in the morning if new medications are started. - Constitutional Vitals: Temp Pulse Resp BP Pulse Ox 97.8 F 82 16 124/70 96 07/18/17 14:08 07/18/17 14:08 07/18/17 14:08 07/18/17 14:08 07/18/17 14:08 General appearance: Present: cooperative, A&O X 3, pleasant, no acute distress, answers questions appropriately - Head Head exam: Present: atraumatic, normal inspection, normocephalic - Eye Eye exam: Present: normal appearance, conjuntiva pink, sclera anicteric - Neck Neck exam general surgery: Present: supple, trachea midline. Absent: lymphadenopathy - Respiratory Respiratory exam: Present: CTAB. Absent: accessory muscle use, rales, rhonchi, wheezes - Cardiovascular Cardiovascular exam: Present: RRR, +S1, +S2. Absent: diastolic murmur, gallop, rubs, systolic murmur - GI/Abdominal GI/Abdominal exam: Present: normal bowel sounds, soft, no peritoneal signs. Absent: distended, tenderness - Extremities Exam Extremities exam: Present: normal capillary refill, warm, radial pulses palpable and symmetrical. Absent: calf tenderness, cyanotic, pedal edema - Neurological Exam Neurological exam: Present: alert, oriented X3, no focal deficits, pronater drift. Absent: facial droop, speech deficit - Skin Skin exam: Present: dry, intact, normal color, warm. Absent: rash Internal Medicine: Result - Labs CBC & Chem 7: 07/18/17 04:56 07/18/17 04:56 Labs: Short CBC 07/18/17 Range/Units 04:56 WBC 4.6 (4.3-11.1) K/mcL Hgb 11.8 L (12.9-16.9) g/dL Hct 35.2 L (37.5-50.1) % Plt Count 239 (140-400) K/mcL Neutrophils # 2.6 (1.6-8.9) K/mcL BMP 07/18/17 04:56 Sodium 140 Potassium 4.0 Chloride 111 H Carbon Dioxide 22 BUN 10 Creatinine 0.80 Glucose 98 Calcium 8.7 - ABG Interpretation ABG results: PT/INR, D-dimer PT 12.1 Seconds (9.4-12.1) 07/16/17 16:10 D-Dimer 5102 ng/mLFEU (0-500) H 07/16/17 16:10 Consult Discharge Plan - Plan Referrals: Brittany Looney MD [Primary Care Provider] - 08/01/17 1:00 pm
[2017-07-19] MEDS: Gabapentin 100 MG CAPSULE PO SCH (09:38)
[2017-07-19] MEDS: Loratadine 10 MG TABLET PO SCH (09:38)
[2017-07-19] MEDS: Aspirin Enteric Coated 81 MG Tablet PO SCH (09:38)
--- NOTE | 2017-07-19 10:30 | Discharge Summary ---
Date of Encounter: 07/19/17 Time of Encounter: 10:00 - Discharge Diagnosis (1) S/P laminectomy Priority: Secondary Status: Acute Comments: Continue outpatient PT. (2) Lactic acidosis Priority: Secondary Status: Resolved (3) Dyspnea Priority: Secondary Status: Acute Comments: Pt denies dyspnea since prior to arrival. Pt had abnormal stress test and has declined [facility]. Will treat with BB, ASA, and Statin. Lungs are clear througout. Qualifiers: Dyspnea type: shortness of breath Qualified Code(s): R06.02 - Shortness of breath; R06.00 - Dyspnea, unspecified; R06.01 - Orthopnea (4) D-dimer, elevated Priority: Secondary Status: Resolved Comments: CTA negative for PE. (5) UTI (urinary tract infection) Priority: Secondary Status: Ruled-out Comments: Urine Culture negative, no growth. Antibiotics have been stopped. Qualifiers: Urinary tract infection type: acute cystitis Hematuria presence: without hematuria Qualified Code(s): N30.00 - Acute cystitis without hematuria (6) Physical deconditioning Priority: Secondary Status: Chronic Comments: Continue PT at home. (7) DVT prophylaxis Priority: Secondary Status: Acute Comments: Pt has been ambulatory. (8) Abnormal stress test Priority: Secondary Status: Acute Comments: Pt had an abnormal stress test. It showed mild intensity perfusion defect observed mainly during stress in the basal and mid anterior wall. Patient's arm was down during both resting and stress images which can obscure image quality. However, given findings, cannot exclude ischemia in the basal and mid anterior wall. Pharmacologic ECG was negative for ischemia at the level of the heart rate achieved. There is a gated EF of greater than 70%. Cardiology recommended [facility], patient declines and prefers only medical management. He will be discharged on ASA, statin, and BB. - Discharge Medications Prescriptions: Aspirin Enteric Coated [Aspirin EC] 81 mg PO DAILY #30 tablet. Atorvastatin [Lipitor] 40 mg PO HS #30 tablet Losartan [Cozaar] 50 mg PO DAILY #15 tablet Metoprolol [Lopressor] 12.5 mg PO BID #30 tablet Home Medications: Gabapentin [Neurontin] 100 mg PO TID 06/20/17 [History] Loratadine [Allergy Relief] 10 mg PO DAILY 06/20/17 [History] Tamsulosin [Flomax] 0.8 mg PO HS 06/22/17 [History] Aspirin Enteric Coated [Aspirin EC] 81 mg PO DAILY #30 tablet. 07/19/17 [Rx] Atorvastatin [Lipitor] 40 mg PO HS #30 tablet 07/19/17 [Rx] Losartan [Cozaar] 50 mg PO DAILY #15 tablet 07/19/17 [Rx] Metoprolol [Lopressor] 12.5 mg PO BID #30 tablet 07/19/17 [Rx] Allergies/Adverse Reactions: 3 Allergy/AdvReac Type Severity Reaction Status Date / Time No Known Allergies Allergy Verified 06/22/17 20:44 Procedures/tests Complete & Pending: Procedures Performed prior 72 hours Category Date Time Status NM ree perf SPECT multi [NM] Routine Exams 07/16/17 20:32 Taken SP pharm nuclear stress Routine Y 07/17/17 07:10 Completed Date of admission: 07/16/17 19:18 Primary care physician: Brittany Looney MD Consults: 07/16/17 22:23 Consult to Occupational Therapy [CONS] Routine Comment: Evaluate, develop and implement POC Reason for Consult: Deconditioning Consult to Physical Therapy [CONS] Routine Comment: Evaluate, develop and implement POC Reason for Consult: Deconditioning 07/17/17 11:28 Consult to Ingredient Specialist [CONS] Routine Reason for SW Consult: outpatient therapy 07/18/17 13:23 Consult to Cardiology [CONS] Routine Comment: Consulting Provider: Cardiology Kaylin Reason for Consult: abnormal stress, Patient's left arm was down during both rest and stress images which can obscure image quality. However, given findings, cannot exclude ischemia in the basal and mid anterior wall. Time Notified: 13:25 Call Completed: Yes Discharging clinician: Laurita Pena Anticipated date of discharge: 07/19/17 - Patient Status Disposition: Home, Self-Care Condition: Good Functional capacity at discharge: independent ambulation Overall status at discharge: patient is progressing back to baseline - Discharge Instructions Follow Up With: Brittany Looney MD [Primary Care Provider] - 08/01/17 1:00 pm Additional Instructions: Follow up with your primary care physician in the next 7-10 days for recheck. Follow-up with cardiology as scheduled. Take new medications as directed. Resume your other home medications. Resume activities as tolerated. Continue physical therapy. Return to the emergency department for any new problems or concerns, or if symptoms return or worsen. - Diet and Activity Activity: increase activity as tolerated Diet: advance to your usual diet Hospital course: Mr. Gallegos is a 72 year old male with past medical history of BPH, hypertension, neuropathy, recent lumbar laminectomy receiving outpatient physical therapy. Patient reports recent hospitalizations here after surgery, complicated by C. difficile colitis and arrhythmia. Patient states that after physical therapy the day of admission, he developed acute shortness of breath while getting out of the car at the car wash. It lasted about an hour. He reported associated dizziness and lightheadedness. He denied chest pain, nausea or vomiting. No abdominal pain, no cough, sore throat, myalgias. Patient had an indwelling Hooks catheter for 3 weeks after surgery and was treated prophylactically for UTI. He was recently removed within the last week prior to admission. He had no urinary symptoms. Patient reports feeling weak and deconditioned and is currently undergoing outpatient physical therapy. Patient continued physical therapy while he was here and was able to stand at the bedside and move about the room with minimal assistance. Urine on admission was cloudy with a small amount of leukocyte esterase, 5-15 white cells , no bacteria, moderate mucus. He continued antibiotic therapy until urine culture returned with no growth. The antibiotic was stopped. On arrival to the emergency department patient had an elevated d-dimer, that was followed up with a chest CTA that was negative for PE. Patient has no leg swelling, no pain , bilateral Homans are negative. He has adequate pedal pulses and no edema. Shortness of breath was concerning for cardiac symptoms, he had a positive stress test with a perfusion defect, ischemia to the basal mid anterior wall could not be excluded. The ECG was negative for ischemia, and the gated EF is > 70%. Cardiology recommended an C. Patient declined states he wants to do medical management. Pt will be sent home with BB, ASA, and Statin rx. He denies chest pain or dyspnea, no headache, urinary symptoms, no abdominal pain, or new pain above baseline. Physical exam is unremarkable. Pt's labs and vital signs are WNL and pt is ready for discharge. Education has been completed and I encouraged pt to follow up with PCP in the next 7-10days. - Time Spent with Patient Total time spent providing and/or coordinating discharge services: Less than 30 minutes - Constitutional Vitals: Temp Pulse Resp BP Pulse Ox 97.6 F 78 16 106/65 92 07/19/17 07:03 07/19/17 07:03 07/19/17 07:03 07/19/17 07:03 07/19/17 07:03 General appearance: Present: cooperative, A&O X 3, pleasant, no acute distress, answers questions appropriately - Head Head exam: Present: atraumatic, normal inspection, normocephalic - Eye Eye exam: Present: conjuntiva pink, sclera anicteric - Neck Neck exam general surgery: Present: normal inspection, tenderness, supple, trachea midline - Respiratory Respiratory exam: Present: CTAB. Absent: accessory muscle use, chest wall tenderness, rales, rhonchi, wheezes - Cardiovascular Cardiovascular exam: Present: RRR, +S1, +S2. Absent: diastolic murmur, gallop, rubs, systolic murmur - GI/Abdominal GI/Abdominal exam: Present: normal bowel sounds, soft, no peritoneal signs. Absent: distended, tenderness - Extremities Exam Extremities exam: Present: normal capillary refill, warm, radial pulses palpable and symmetrical. Absent: calf tenderness, cyanotic, pedal edema - Neurological Exam Neurological exam: Present: alert, oriented X3. Absent: facial droop, speech deficit - Skin Skin exam: Present: dry, intact, normal color, warm. Absent: rash
--- NOTE | 2017-07-19 11:59 | Cardiology Progress Note ---
Date of Encounter: 07/19/17 Time of Encounter: 11:54 Assessment and Plan (1) Abnormal stress test Current Visit: Yes Status: Acute Presents with SOB and dizziness. Denies chest pain to me. Troponin negative. He is normotensive. Telemetry review showed NSR. Stress test ordered by primary team. Stress test showed a mild intensity perfusion defect observed mainly during stress in the basal and mid anterior wall, but also to some trivial extent during rest. Patient's left arm was down during both rest and stress images which can obscure image quality. However, given findings, cannot exclude ischemia in the basal and mid anterior wall. Recommend clinical correlation. Pharmacologic ECG was negative for ischemia at the level of heart rate achieved. Gated EF = > 70%. Stress test reviewed with patient and . LHC is recommended for further evaluation. R/B/A of LHC discussed. Patient declined [facility] and prefers only medical management. He does not wish to proceed with any invasive procedures. risk of UT, arrythmia or was reviewed with patient and by Dr. Blackmon. Patient voiced understanding. He reports he is feeling well and ready to go home. Recommend asa, statin, and bb. Patient agrees. Out-pt f/u with [facility] will be coordinated by the office. Please call with questions, (2) Atrial fibrillation Current Visit: No Status: Resolved H/o post operative afib that resolved in after surgery when given esmolol. Telemetry review shows no evidence of afib. SR-ST with avg HR 80. Anticoagulation was not recommended d/t short duration. Continue beta-nga. Qualifiers: Atrial fibrillation type: unspecified Qualified Code(s): I48.91 - Unspecified atrial fibrillation Discussion w patient/family: The assessment and plan as outlined above was discussed with the patient and/or family members who expressed understanding and agreement. All questions were answered. Thank you for involving us in the care of your patient. Please call with any questions. Subjective Principal diagnosis: Abnormal stress, dizziness Interval history: Mr. Gallegos denies recurrent dizziness or lightheadedness. Objective General: Conversant, No Apparent Distress HEENT: Atraumatic, Normocephaly, Mucus Membranes Moist Neck: No JVD, Normal carotid pulses Cardiac: Reg Rate and Rhythm, Normal S1 and S2, No Murmur Lungs: Normal Breath Sounds, No Wheeze, Rales, Rhonchi Neuro: Alert and responsive, No focal deficits noted Abdomen: Soft, Non-Tender Skin: No rashes noted on visualized skin Musculoskeletal: No Chest Wall Tenderness, Other (Genralized weakness) Extremities: No Clubbing, No Cyanosis, No Edema, Normal Pulses Results 07/18/17 04:56 07/18/17 04:56 - Imaging and Cardiology Stress Test: report reviewed Echo: report reviewed Consult Discharge Plan - Plan Instructions: Metoprolol (By mouth), Aspirin (By mouth), Losartan (By mouth), Atorvastatin (By mouth), Chest Pain (DC), Heart Healthy Diet (DC) Additional Instructions: Follow up with your primary care physician in the next 7-10 days for recheck. Follow-up with cardiology as scheduled. Take new medications as directed. Resume your other home medications. Resume activities as tolerated. Continue physical therapy. Return to the emergency department for any new problems or concerns, or if symptoms return or worsen. Referrals: Brittany Looney MD [Primary Care Provider] - 08/01/17 1:00 pm Prescriptions: Aspirin Enteric Coated [Aspirin EC] 81 mg PO DAILY #30 tablet. Atorvastatin [Lipitor] 40 mg PO HS #30 tablet Losartan [Cozaar] 50 mg PO DAILY #15 tablet Metoprolol [Lopressor] 12.5 mg PO BID #30 tablet
[2017-07-19 13:02] VITALS: BP 115/62
== END 2017-07-19 13:49 | disposition home or self-care (01) ==
LOC: 3BNU 15:40 → EMEROO 15:40 → 3BNU 19:53
PROVIDERS: ADMIT Internal Medicine; ATTEND Registered Nurse

== ENCOUNTER 2021-07-01 15:53 | Inpatient (IN) ==
[2021-07-01 20:10] LABS: Bilirubin,Urine Negative (Negative); Blood,Urine Trace (Negative); Clarity,Urine Clear (Clear); Color,Urine Light-Orange (Yellow); Glucose,Urine (UA) Normal (Normal); Ketones,Urine Negative (Negative); Leukocyte Esterase,Urine Negative (Negative); Mucus,Urine Many per lpf (None-Few); Nitrite,Urine Negative (Negative); Protein,Urine 50 mg/dL (Neg-Trace); Specific Gravity,Urine > 1.030 (1.010-1.025); Squamous Epithelial Cell,Urine Few per hpf (None-Few); WBC,Urine 0-3 per hpf (0-3)
[2021-07-01 20:21] LABS: Alanine Aminotransferase 48 Units/L (7-52); Albumin 4.2 g/dL (3.5-5.7); Albumin/Globulin Ratio 1.7 (1.1-2.2); Alkaline Phosphatase 86 Units/L (34-104); Aspartate Amino Transferase 46 Units/L (13-39); BUN/Creatinine Ratio 27 (6-26); Bilirubin,Direct 0.6 mg/dL (0.0-0.2); Bilirubin,Indirect 2.8 mg/dL (0.0-1.0); Bilirubin,Total 3.4 mg/dL (0.3-1.0); Blood Urea Nitrogen 20 mg/dL (8-23); Calcium 9.4 mg/dL (8.6-10.3); Carbon Dioxide 22 mEq/L (23-29); Chloride 102 mEq/L (98-107); Globulin 2.5 g/dL (2.4-3.5); Glucose 150 mg/dL (70-105); Lipase 9 Units/L (11-82); Osmolality,Calculated 283 (280-300); Potassium 3.7 mEq/L (3.5-5.1); Sodium 134 mEq/L (136-145); Total Protein 6.7 g/dL (6.4-8.9); eGFR For African Americans > 60 (> 60); eGFR For Non-African Americans > 60 (> 60)
[2021-07-01 20:23] LABS: Basophils % 0.1 %; Hematocrit 44.8 % (37.5-50.1); Hemoglobin 15.5 g/dL (12.9-16.9); Immature Granulocytes % 1.1 % (0-4); Immature Platelets 4.1 % (1.1-6.1); Lymphocytes # 1.2 K/mcL (0.6-4.6); Lymphocytes % 5.6 %; Mean Corpuscular HGB Conc 34.6 g/dL (31.6-35.5); Mean Corpuscular Hemoglobin 30.5 pg (28.0-33.3); Mean Corpuscular Volume 88.2 fL (83.0-100.0); Mean Platelet Volume 10.7 fL (9.4-12.4); Monocytes # 1.2 K/mcL (0.0-1.3); Monocytes % 5.7 %; Neutrophils # 18.1 K/mcL (1.6-8.9); Platelet Count 144 K/mcL (140-400); Red Blood Count 5.08 M/mcL (4.19-5.50); Red Cell Distribution Width 12.6 % (11.5-14.5); Segmented Neutrophils % 87.5 %; White Blood Count 20.6 K/mcL (4.3-11.1)
[2021-07-01] MEDS ORDERED: Isovue-370 500 ML BOTTLE IVP ONE (23:43)
[2021-07-01] MEDS ORDERED: Morphine Sulfate 2 MG/ML SYRINGE IVP ONE (23:47)
[2021-07-01] MEDS ORDERED: 0.9 % Sodium Chloride 1,000 ML IV ONE (23:47)
[2021-07-01] MEDS ORDERED: Acetaminophen 325 MG TABLET PO ONE (23:50)
[2021-07-02 01:18] LABS: Influenza A PCR Negative (Negative); Influenza B PCR Negative (Negative); Resp. Syncytial Virus PCR Negative (Negative)
[2021-07-02 01:19] LABS: SARS-CoV-2 by PCR (In House) Negative (Negative)
[2021-07-02] MEDS ORDERED: Piperacillin/Tazobactam 3.375 GM in Water for inj. (sterile) 20 ML IVP ONE (03:16)
[2021-07-02] MEDS ORDERED: Naloxone 0.4 MG/ML INJ IVP PRN (03:38)
[2021-07-02] MEDS ORDERED: Ondansetron 4 MG/2 ML VIAL IVP PRN (03:38)
[2021-07-02] MEDS ORDERED: Piperacillin/Tazobactam 3.375 GM VIAL ONE (04:39)
[2021-07-02] MEDS: Ringers Solution, Lactated 1,000 ML IVC SCH (05:11)
[2021-07-02] MEDS: Piperacillin/Tazobactam 3.375 GM in 0.9 % Sodium Chloride Mini Bag 100 ML IVPB SCH ×3 (05:12→21:01)
[2021-07-02 06:16] LABS: Basophils % 0.1 %; Immature Granulocytes % 3.9 % (0-4); Lymphocytes # 0.8 K/mcL (0.6-4.6); Lymphocytes % 4.6 %; Mean Corpuscular HGB Conc 33.5 g/dL (31.6-35.5); Mean Corpuscular Hemoglobin 30.2 pg (28.0-33.3); Mean Corpuscular Volume 90.3 fL (83.0-100.0); Mean Platelet Volume 10.2 fL (9.4-12.4); Monocytes # 1.1 K/mcL (0.0-1.3); Monocytes % 6.3 %; Neutrophils # 14.5 K/mcL (1.6-8.9); Platelet Count 114 K/mcL (140-400); Red Blood Count 4.43 M/mcL (4.19-5.50); Red Cell Distribution Width 12.9 % (11.5-14.5); Segmented Neutrophils % 85.1 %
[2021-07-02 06:20] LABS: Hemoglobin 13.4 g/dL (12.9-16.9)
[2021-07-02 06:24] LABS: INR 1.7; Prothrombin Time 19.6 Seconds (9.4-12.1)
[2021-07-02 06:34] LABS: Alanine Aminotransferase 34 Units/L (7-52); Albumin 3.6 g/dL (3.5-5.7); Albumin/Globulin Ratio 1.7 (1.1-2.2); Alkaline Phosphatase 67 Units/L (34-104); Aspartate Amino Transferase 34 Units/L (13-39); BUN/Creatinine Ratio 32 (6-26); Bilirubin,Total 3.3 mg/dL (0.3-1.0); Blood Urea Nitrogen 23 mg/dL (8-23); Calcium 8.9 mg/dL (8.6-10.3); Carbon Dioxide 24 mEq/L (23-29); Chloride 104 mEq/L (98-107); Globulin 2.1 g/dL (2.4-3.5); Glucose 146 mg/dL (70-105); Magnesium 1.9 mg/dL (1.6-2.6); Osmolality,Calculated 286 (280-300); Potassium 3.3 mEq/L (3.5-5.1); Sodium 135 mEq/L (136-145); Total Protein 5.7 g/dL (6.4-8.9); eGFR For African Americans > 60 (> 60); eGFR For Non-African Americans > 60 (> 60)
[2021-07-02] MEDS ORDERED: Gadolinium Contrast Agent (WT Based) IV PRN (09:08)
[2021-07-02] MEDS ORDERED: *HR* FentaNYL (PF) 100 MCG/2 ML VIAL IVP ONE (10:53)
[2021-07-02] MEDS ORDERED: *HR* Midazolam HCl 2 MG/2 ML VIAL IVP ONE (10:54)
[2021-07-02] MEDS ORDERED: 0.9 % Sodium Chloride 500 ML ONE (11:14)
[2021-07-02] MEDS ORDERED: *HR* LORazepam 2 MG/ML VIAL IVP PRN (12:13)
[2021-07-02] MEDS ORDERED: *HR* Metoprolol 5 MG/5 ML VIAL IVP SCH ×2 (12:15→16:15)
[2021-07-02] MEDS ORDERED: GADOBUTROL 30 MMOL/30 ML VIAL IVP ONE (12:19)
[2021-07-02] MEDS: Gabapentin 100 MG CAPSULE PO SCH ×2 (17:06→21:03)
[2021-07-02] MEDS ORDERED: Acetaminophen IV 1,000 MG/100 ML BAG IVPB SCH (17:15)
[2021-07-03] MEDS: Ringers Solution, Lactated 1,000 ML IVC SCH (02:07)
[2021-07-03 05:49] LABS: Basophils % 0.1 %; Eosinophils % 0.1 %; Hematocrit 43.9 % (37.5-50.1); Hemoglobin 14.9 g/dL (12.9-16.9); Immature Granulocytes % 0.7 % (0-4); Lymphocytes # 1.2 K/mcL (0.6-4.6); Mean Corpuscular HGB Conc 33.9 g/dL (31.6-35.5); Mean Corpuscular Hemoglobin 30.5 pg (28.0-33.3); Mean Platelet Volume 10.4 fL (9.4-12.4); Monocytes # 0.8 K/mcL (0.0-1.3); Monocytes % 5.1 %; Neutrophils # 12.7 K/mcL (1.6-8.9); Platelet Count 137 K/mcL (140-400); Red Blood Count 4.88 M/mcL (4.19-5.50); Red Cell Distribution Width 12.5 % (11.5-14.5); White Blood Count 14.8 K/mcL (4.3-11.1)
[2021-07-03 06:16] LABS: Alanine Aminotransferase 63 Units/L (7-52); Albumin 3.5 g/dL (3.5-5.7); Albumin/Globulin Ratio 1.5 (1.1-2.2); Alkaline Phosphatase 68 Units/L (34-104); Aspartate Amino Transferase 74 Units/L (13-39); BUN/Creatinine Ratio 32 (6-26); Bilirubin,Direct 0.6 mg/dL (0.0-0.2); Bilirubin,Indirect 2.3 mg/dL (0.0-1.0); Bilirubin,Total 2.9 mg/dL (0.3-1.0); Blood Urea Nitrogen 25 mg/dL (8-23); Carbon Dioxide 22 mEq/L (23-29); Chloride 104 mEq/L (98-107); Globulin 2.4 g/dL (2.4-3.5); Glucose 122 mg/dL (70-105); Magnesium 2.2 mg/dL (1.6-2.6); Osmolality,Calculated 288 (280-300); Potassium 3.3 mEq/L (3.5-5.1); Sodium 136 mEq/L (136-145); Total Protein 5.9 g/dL (6.4-8.9); eGFR For African Americans > 60 (> 60); eGFR For Non-African Americans > 60 (> 60)
[2021-07-03] MEDS: Piperacillin/Tazobactam 3.375 GM in 0.9 % Sodium Chloride Mini Bag 100 ML IVPB SCH ×2 (08:09→18:17)
[2021-07-03] MEDS: Gabapentin 100 MG CAPSULE PO SCH ×3 (08:10→20:24)
[2021-07-03] MEDS ORDERED: Aspirin Enteric Coated 81 MG Tablet PO SCH (09:00)
[2021-07-03] MEDS ORDERED: Ondansetron 4 MG/2 ML VIAL ONE (09:13)
[2021-07-03] MEDS ORDERED: *HR* Rocuronium Bromide 50 MG/5 ML VIAL ONE (09:13)
[2021-07-03] MEDS ORDERED: Lidocaine -MPF 2% 2 ML VIAL ONE (09:13)
[2021-07-03] MEDS ORDERED: *HR* FentaNYL (PF) 100 MCG/2 ML VIAL ONE (09:14)
[2021-07-03] MEDS ORDERED: *HR* Propofol 200 MG/20 ML VIAL IVP ONE (09:16)
[2021-07-03] MEDS ORDERED: Ondansetron 4 MG/2 ML VIAL IVP PRN ×2 (10:57→12:57)
[2021-07-03] MEDS ORDERED: Sugammadex Sodium 200 MG/2 ML VIAL IV ONE (10:57)
[2021-07-03] MEDS ORDERED: *HR* OxyCODONE Immed Rel 5 MG TABLET PO PRN (10:57)
[2021-07-03] MEDS ORDERED: *HR* HYDROmorphone PF 0.5 MG/0.5 ML SYRINGE IVP PRN (10:57)
[2021-07-03] MEDS ORDERED: Naloxone 0.4 MG/ML INJ IVP PRN (12:57)
[2021-07-03] MEDS ORDERED: *HR* LORazepam 2 MG/ML VIAL IVP PRN (12:57)
[2021-07-03] MEDS ORDERED: Gadolinium Contrast Agent (WT Based) IV PRN (12:57)
[2021-07-03] MEDS ORDERED: *HR* Metoprolol 5 MG/5 ML VIAL IVP SCH (12:57)
[2021-07-03] MEDS ORDERED: Acetaminophen IV 1,000 MG/100 ML BAG IVPB SCH (12:57)
[2021-07-03] MEDS ORDERED: Acetaminophen IV 1,000 MG/100 ML BAG IVPB ONE (13:45)
[2021-07-03] MEDS ORDERED: *HR* Metoprolol 5 MG/5 ML VIAL IVP ONE (13:45)
[2021-07-04] MEDS: Piperacillin/Tazobactam 3.375 GM in 0.9 % Sodium Chloride Mini Bag 100 ML IVPB SCH ×3 (01:34→15:57)
[2021-07-04 08:01] LABS: Hematocrit 38.1 % (37.5-50.1); Mean Corpuscular HGB Conc 34.1 g/dL (31.6-35.5); Mean Corpuscular Hemoglobin 30.2 pg (28.0-33.3); Mean Corpuscular Volume 88.6 fL (83.0-100.0); Mean Platelet Volume 10.6 fL (9.4-12.4); Platelet Count 165 K/mcL (140-400); Red Cell Distribution Width 12.5 % (11.5-14.5); White Blood Count 9.9 K/mcL (4.3-11.1)
[2021-07-04] MEDS: Aspirin Enteric Coated 81 MG Tablet PO SCH (08:05)
[2021-07-04] MEDS: Famotidine 20 MG TABLET PO SCH (08:05)
[2021-07-04] MEDS: Gabapentin 100 MG CAPSULE PO SCH ×3 (08:05→21:04)
[2021-07-04 08:17] LABS: Alanine Aminotransferase 285 Units/L (7-52); Albumin 3.3 g/dL (3.5-5.7); Albumin/Globulin Ratio 1.4 (1.1-2.2); Alkaline Phosphatase 59 Units/L (34-104); Aspartate Amino Transferase 296 Units/L (13-39); BUN/Creatinine Ratio 42 (6-26); Bilirubin,Direct 0.4 mg/dL (0.0-0.2); Bilirubin,Indirect 1.1 mg/dL (0.0-1.0); Bilirubin,Total 1.5 mg/dL (0.3-1.0); Blood Urea Nitrogen 33 mg/dL (8-23); Calcium 8.7 mg/dL (8.6-10.3); Carbon Dioxide 27 mEq/L (23-29); Chloride 104 mEq/L (98-107); Globulin 2.3 g/dL (2.4-3.5); Glucose 134 mg/dL (70-105); Magnesium 2.2 mg/dL (1.6-2.6); Osmolality,Calculated 295 (280-300); Potassium 3.1 mEq/L (3.5-5.1); Sodium 138 mEq/L (136-145); Total Protein 5.6 g/dL (6.4-8.9); eGFR For African Americans > 60 (> 60); eGFR For Non-African Americans > 60 (> 60)
[2021-07-04] MEDS ORDERED: Melatonin 3 MG TABLET PO SCH (21:00)
[2021-07-05] MEDS: Piperacillin/Tazobactam 3.375 GM in 0.9 % Sodium Chloride Mini Bag 100 ML IVPB SCH ×2 (00:20→05:42)
[2021-07-05 08:15] LABS: Alanine Aminotransferase 365 Units/L (7-52); Albumin 2.9 g/dL (3.5-5.7); Albumin/Globulin Ratio 1.5 (1.1-2.2); Alkaline Phosphatase 60 Units/L (34-104); Aspartate Amino Transferase 308 Units/L (13-39); BUN/Creatinine Ratio 37 (6-26); Bilirubin,Direct 0.3 mg/dL (0.0-0.2); Bilirubin,Indirect 0.7 mg/dL (0.0-1.0); Blood Urea Nitrogen 29 mg/dL (8-23); Calcium 8.4 mg/dL (8.6-10.3); Carbon Dioxide 25 mEq/L (23-29); Chloride 107 mEq/L (98-107); Glucose 115 mg/dL (70-105); Osmolality,Calculated 293 (280-300); Potassium 3.5 mEq/L (3.5-5.1); Sodium 138 mEq/L (136-145); Total Protein 4.9 g/dL (6.4-8.9); eGFR For African Americans > 60 (> 60); eGFR For Non-African Americans > 60 (> 60)
[2021-07-05] MEDS: Gabapentin 100 MG CAPSULE PO SCH (08:57)
[2021-07-05] MEDS: Aspirin Enteric Coated 81 MG Tablet PO SCH (08:57)
[2021-07-05] MEDS: Famotidine 20 MG TABLET PO SCH (08:58)
[2021-07-05 10:46] VITALS: BP 105/64; PULSE 94; TEMP 97.8; O2SAT 91
== END 2021-07-05 13:20 | disposition home or self-care (01) | DRG 853 ==
LOC: 3ANU 15:53 → EMEROOARM 15:53 → OBSVTOIN 07-02 03:38 → SUATTDRO 07-02 03:38 → 3ANU 07-02 04:10
PROVIDERS: ADMIT Student in an Organized Health Care Education/Training Program; ATTEND Internal Medicine
PROC: IRDRAIN (2021-07-02 11:10)

== ENCOUNTER 2022-04-20 06:19 | Inpatient (IN) ==
[2022-04-20] MEDS ORDERED: Ringers Solution, Lactated 1,000 ML IVC SCH ×2 (06:45→16:38)
[2022-04-20] MEDS ORDERED: CeFAZolin Syr 2,000MG/20 ML 2,000 MG/20 ML SYRINGE IVPB ONE (06:45)
[2022-04-20] MEDS ORDERED: Ondansetron 4 MG/2 ML VIAL IVP PRN ×2 (06:51→16:38)
[2022-04-20] MEDS ORDERED: Famotidine 20 MG/2 ML VIAL IVP ONE (07:00)
[2022-04-20] MEDS ORDERED: Acetaminophen IV 1,000 MG/100 ML BAG IVPB ONE (07:00)
[2022-04-20] MEDS ORDERED: *HR* OxyCODONE Immed Rel 5 MG TABLET PO ONE (07:00)
[2022-04-20] MEDS ORDERED: Albuterol 2.5 MG/3 ML NEBULIZER IH ONE (07:11)
[2022-04-20] MEDS ORDERED: Vancomycin 1,000 MG VIAL ONE ×2 (07:15→08:00)
[2022-04-20] MEDS ORDERED: Bupivacaine/EPI 1:200k 0.25% 50 ML VIAL ONE (07:15)
[2022-04-20] MEDS ORDERED: Albuterol 2.5 MG/3 ML NEBULIZER ONE (07:17)
[2022-04-20] MEDS ORDERED: Heparin 1,000 UNITS/500 mL 500 ML ONE (07:20)
[2022-04-20] MEDS ORDERED: Lidocaine -MPF 2% 5 ML VIAL ONE (07:21)
[2022-04-20] MEDS ORDERED: *HR* Propofol 200 MG/20 ML VIAL IVP ONE (07:21)
[2022-04-20] MEDS ORDERED: Lidocaine -MPF 4% 5 ML AMPUL ONE (07:21)
[2022-04-20] MEDS ORDERED: *HR* Succinylcholine 200 MG/10 ML VIAL IVP ONE (07:21)
[2022-04-20] MEDS: tiZANidine 4 MG TABLET PO SCH ×2 (07:21→15:13)
[2022-04-20] MEDS ORDERED: Ondansetron 4 MG/2 ML VIAL ONE (07:21)
[2022-04-20] MEDS ORDERED: *HR* FentaNYL (PF) 100 MCG/2 ML VIAL ONE (07:21)
[2022-04-20] MEDS ORDERED: *HR* Phenylephrine 10 MG/ML VIAL ONE (07:29)
[2022-04-20] MEDS ORDERED: *HR* Remifentanil 2 MG VIAL IVP ONE ×3 (07:33→12:24)
[2022-04-20] MEDS ORDERED: Bacitracin OINT PKT TP ONE (07:59)
[2022-04-20] MEDS ORDERED: Albumin Human 5% 12.5 GM/250 ML IV.SOLN ONE (12:03)
[2022-04-20 14:07] LABS: Hematocrit 35.3 % (37.5-50.1); Hemoglobin 11.7 g/dL (12.9-16.9)
[2022-04-20] MEDS: *HR* FentaNYL (PF) 100 MCG/2 ML VIAL IVP PRN ×2 (14:37→14:51)
[2022-04-20] MEDS: *HR* HYDROmorphone PF 0.5 MG/0.5 ML SYRINGE IVP PRN ×2 (15:01→15:10)
[2022-04-20] MEDS ORDERED: Naloxone 0.4 MG/ML INJ IVP PRN (16:38)
[2022-04-20] MEDS: *HR* OxyCODONE Immed Rel 5 MG TABLET PO PRN (18:28)
[2022-04-20] MEDS: CeFAZolin 2 GM/120 ML BAG IVPB SCH ×2 (18:33→23:42)
[2022-04-20] MEDS: Acetaminophen 325 MG TABLET PO SCH ×2 (18:34→23:41)
[2022-04-20] MEDS: Gabapentin 100 MG CAPSULE PO SCH (19:59)
[2022-04-20] MEDS: *HR* HYDROcodone/Acet 5/325 mg TABLET PO PRN (21:03)
[2022-04-21] MEDS: Acetaminophen 325 MG TABLET PO SCH ×3 (05:05→17:51)
[2022-04-21] MEDS: Gabapentin 100 MG CAPSULE PO SCH ×2 (09:05→21:42)
[2022-04-21] MEDS: *HR* OxyCODONE Immed Rel 5 MG TABLET PO PRN ×2 (09:06→17:53)
[2022-04-22] MEDS: Acetaminophen 325 MG TABLET PO SCH ×5 (01:00→23:39)
[2022-04-22] MEDS: Gabapentin 100 MG CAPSULE PO SCH ×2 (09:22→21:56)
[2022-04-22] MEDS: *HR* OxyCODONE Immed Rel 5 MG TABLET PO PRN (09:29)
[2022-04-22] MEDS: *HR* HYDROcodone/Acet 5/325 mg TABLET PO PRN (22:00)
[2022-04-23] MEDS: Acetaminophen 325 MG TABLET PO SCH ×4 (05:37→22:55)
[2022-04-23] MEDS: Gabapentin 100 MG CAPSULE PO SCH ×2 (09:34→22:55)
[2022-04-24] MEDS: Acetaminophen 325 MG TABLET PO SCH (06:35)
[2022-04-24 07:05] VITALS: BP 105/67; PULSE 79; TEMP 98.2; O2SAT 94
[2022-04-24] MEDS: Gabapentin 100 MG CAPSULE PO SCH (09:26)
[2022-04-24] MEDS: *HR* OxyCODONE Immed Rel 5 MG TABLET PO PRN (09:27)
== END 2022-04-24 13:37 | disposition home health service (06) | DRG 473 ==
LOC: SDCAOSI 06:19 → 4WAOSI 13:48
PROVIDERS: ADMIT Student in an Organized Health Care Education/Training Program; ATTEND Student in an Organized Health Care Education/Training Program